=== PATIENT | female | born 1970 ===

== ENCOUNTER 2021-10-28 10:06 | Day surgery (SDC) | payer OTHER ==
[~2021-10-28] VITALS: Ht 165.1 cm; Wt 129.5 kg
[2021-10-28] MEDS ORDERED: HAIRSKINNAILS PO (12:06)
[2021-10-28] MEDS ORDERED: B-121000 MCG PO (12:07)
[2021-10-28] MEDS ORDERED: PEPPERMINT OIL 11 ML (12:07)
[2021-10-28] MEDS ORDERED: PROBIOTICA100 Milli1 PO (12:08)
[2021-10-28] MEDS ORDERED: STOOL SOFTENER100 M2 PO (12:08)
[2021-10-28 12:20] VITALS: BP 122/69; PULSE 54; TEMP 98.2
[2021-10-28 13:40] VITALS: BP 136/78; PULSE 61; TEMP 98
[2021-10-28] MEDS ORDERED: PROTONIX 40MG T40 MG PO (13:48)
[2021-10-28 13:55] VITALS: BP 137/91; PULSE 55; TEMP 98
[2021-10-28 14:30] VITALS: BP 142/84; PULSE 53; TEMP 98
[2021-10-28 16:35] VITALS: BP 136/78; PULSE 52
== END 2021-10-28 14:36 | disposition home or self-care (01) ==
LOC: SDCO 10:06
DX: K21.00 Gastro-esophageal reflux disease with esophagitis, without bleeding (principal); K44.9 Diaphragmatic hernia without obstruction or gangrene; K31.84 Gastroparesis; K25.9 Gastric ulcer, unspecified as acute or chronic, without hemorrhage or perforation; Z86.010 Personal history of colon polyps; Z90.49 Acquired absence of other specified parts of digestive tract; Z80.41 Family history of malignant neoplasm of ovary
CPT/HCPCS: J2704; J7030